=== PATIENT | female | born 1955 | race Caucasian/White ===

== ENCOUNTER 2025-05-26 02:44 | Emergency (ER) | payer MEDICARE, OTHER, SELFPAY ==
[2025-05-26 03:03] VITALS: BMI 31.1
--- NOTE | 2025-05-26 03:06 | DOWNTIME ---
There was a [employer] Downtime on 05/26/2025 from 0100 to 05/26/2025 at 0255. Downtime documentation of patient's care, including medication administrations, has been reconciled in the electronic record per guidelines. Refer to the
patient's paper chart under the miscellaneous tab to see printed paper medication records and downtime forms.
[2025-05-26 03:11] LABS: Hematocrit 38.7 % (37.0-47.0); Hemoglobin 12.7 g/dL (12.0-16.0); Mean Corp Hgb Conc. 32.8 g/dL (33.0-37.0); Mean Corpuscular Volume 89.6 fL (81.0-99.0); Platelet Count 171 10^3/uL (130-400); Red Cell Dist. Width 13.5 % (11.5-14.5)
[2025-05-26 03:12] LABS: Nucleated Red Blood Cells % 0 %
[2025-05-26 03:22] LABS: ALT (SGPT) 19 U/L (0-35); AST (SGOT) 19 U/L (14-36); Albumin 4.1 g/dl (3.5-5.0); Alkaline Phosphatase 95 U/L (38-126); Blood Urea Nitrogen 20 mg/dl (7-17); Calcium 9.4 mg/dl (8.4-10.2); Carbon Dioxide 28 mmol/L (22-30); Chloride 105 mmol/L (98-107); Estimated Creatinine Clearance 57 ml/min; Glucose 110 mg/dl (70-99); Lipase 156 U/L (23-300); Potassium 3.9 mmol/L (3.5-5.1); Sodium 137 mmol/L (135-145); Total Protein 6.7 g/dl (6.3-8.2); eGFR > 60.00
[2025-05-26 04:00] VITALS: BP 125/66
--- NOTE | 2025-05-26 04:32 | ED.GENMED ---
History of Present Illness
General
Chief Complaint: Abdominal Symptoms
Source: patient
Exam Limitations: none
Time Seen by Provider: 05/26/25 04:32
History of Present Illness
History of Present Illness:
Note:
CHIEF COMPLAINT(S)
Upper abdominal discomfort with associated back pain.
HISTORY OF PRESENT ILLNESS
The patient is a 69-year-old female with pmh of GERD who presents to the ER today with concerns of upper abdominal discomfort that radiates to the back on the right side. She describes the sensation as 'ice-like' and notes the onset occurred after
eating a meal consisting of barbecue chicken and macaroni and cheese at around 8 pm. The discomfort began under the rib cage and extended to the back. Despite a history of frequent belching, she states this current episode of pain is not like
episodes of GERD she has had in the past. She notes that the symptoms come in waves and are not associated with a burning sensation, which makes her think it is not related to gastroesophageal reflux disease. There is also a history of episodic
squeezing pressure in this region, but without prior back pain involvement. Currently, pain is present but minimal and belching seemed to subside. No episodes of vomiting. No fevers or chills. No lower back discomfort. No history of kidney stones or
peptic ulcer disease. The patient experiences chills without fever, making her suspect gallbladder involvement. She denies nausea, vomiting, dark stools, hematochezia, or respiratory symptoms like cough. The patient reports an episode of feeling
restless at home and unable to find a comfortable position in bed due to the pain, which seems to recede and surge. She experienced chills and cold hands prior to seeking care. She denies chest pain, jaw pain, pain in her extremities, syncopal
episode. She has no burning with urination, dysuria.
PAST MEDICAL AND SURGICAL HISTORY
The patient has a history of reflux, for which she used pantoprazole but has since discontinued. She reports past episodes of microscopic hematuria but has not been diagnosed with any specific condition following cystoscopy. There is no history of
abdominal surgery or gallbladder removal.
SOCIAL HISTORY
The patient is a former smoker. She ceased smoking in the past but did not specify how long ago.
REVIEW OF SYSTEMS
- Gastrointestinal: Reports upper abdominal discomfort with radiation to the back, belching.
- Musculoskeletal: Back pain radiating from the abdomen.
- Constitutional: Chills without fever were noted.
- Respiratory: No cough, dyspnea, or recent respiratory illness.
- Cardiovascular: Denies chest pain, arm, shoulder, or jaw pain. No palpitations noted.
PHYSICAL EXAM
General: Well appearing, awake and alert, no acute distress.
Skin: Warm, dry.
Head: Normocephalic, atraumatic.
Neck: Supple, trachea midline.
Eye, Ears, Nose, Mouth, and Throat: Oral mucosa moist.
Cardiovascular: Regular rate and rhythm, no murmurs. Normal peripheral perfusion, no edema.
Respiratory: Respirations are non-labored. No wheezes, rales, or rhonchi
Gastrointestinal: Abdomen nondistended. No tenderness upon palpation. No palpable abdominal masses, no pulsatile abdominal mass.
Back: Normal range of motion, normal alignment, no tenderness to palpation.
Musculoskeletal: Normal range of motion, normal strength.
Neurological: Alert and oriented to person, place, time, and situation, no focal neurological deficit observed.
Psychiatric: Cooperative, appropriate mood and affect.
PROBLEM LIST
Acute:
1. Upper abdominal discomfort with radiation to the back.
2. Associated chills without fever.
3. History of belching.
PLAN
1. Obtain an abdominal ultrasound to evaluate gallbladder function and check for kidney stones.
2. Consider administering a GI cocktail to rule out gastroesophageal reflux-related symptoms.
3. Monitor symptoms, particularly chills, since they could indicate a gallbladder infection.
4. Educate the patient on signs and symptoms that would necessitate further immediate evaluation such as increasing pain, fever, or new symptoms.
Since patient is experiencing belching and nausea and GERD ans gastritis is on the ddx, I did offer GI cocktail which patient declined
Patient declining nausea medication at this time
Reviewed case with Dr. Lowe
Considering symptoms started >6 hours ago with no chest pain, will plan to draw one trop
DIFFERENTIAL DIAGNOSIS
The Differential Diagnosis includes, in no particular order and is not limited to:
1. Cholecystitis
2. Biliary colic
3. Peptic ulcer disease
4. Gastroesophageal reflux disease
5. Pancreatitis
6. Myocardial ischemia
7. GERD with atypical presentation
8. Kidney stone
9. Musculoskeletal pain
10. Viral gastroenteritis
CHART REVIEW
No prior ER physician documentation to review
No discharge summary for review
No external medical summary for review
ECG
Normal sinus rhythm
Rate 72
No ischemia
Normal intervals
UPDATE
On reassessment, patient states that she feels much better than from initial assessment, notices some back discomfort
LABS
Lipase normal
CBC shows no leukocytosis
LFTs and total bilirubin normal
MDM/DISPOSITION
69-year-old females past history history of Gerd presents to the ER today with concerns of pain , belching, nausea after eating dinner. She feels like discomfort reads to the back. She has no sushi she had chest pain. And physical exam she's well
appearing in acute distress. Her vital centers are stable. There's no obvious abdominal tenderness to palpation, no probable abdominal mass. Negative Wills sign. eports that she has no personal or family history of cardiac disease. I did offer
medications for patient discomfort which she declines at this time. atient was sent for abdominal ultrasound which was negative for acute cholecystitis, no evidence of gallstones. Pancreas unremarkable. No signs of hydronephrosis. Abdominal aorta
appears unremarkable. Liver on unremarkable.
Troponin undetectable, ECG not ischemic. Consider considering patient waxing and waning pattern of pain , associate with right side discomfort, I highly suspect suspect biliary colic based on Salvador III/IV criteria. Discussed close follow up with GI
and pcp. Another possibly is GERD, we discussed PPI trial which patient will consider. Other consideration is MSK etiology. Case discussed with ED attending. Patient stable for discharge
Phy Exam
Physical Exam
Physical Exam:
see hpi
Course
Orders/Labs/Results
Orders:
Orders
05/26/25
Electrocardiogram (*1) Stat
Reason for Study: Chest Pain
05/26/25 02:02
Complete Blood Count/With Diff Urgent
Comprehensive Metabolic Panel Urgent
Lipase Urgent
05/26/25 05:17
US Abdomen Complete/Upper Urgent
Comment:
Reason For Exam: epigastric pain
05/26/25 05:36
Troponin I Urgent
Abnormal Lab Results
05/26/25
02:02
MCHC 32.8 L g/dL
(33.0-37.0)
BUN 20 H mg/dl
(7-17)
Glucose 110 H mg/dl
(70-99)
05/26/25 02:02
05/26/25 02:02
Vital Signs
Initial and Last Documented VS:
Initial Vital Signs
Pulse Resp Pulse Ox
77 14 97
05/26/25 03:47 05/26/25 03:47 05/26/25 03:47
Last Documented Vital Signs
Pulse Resp BP Pulse Ox
67 16 123/63 96
05/26/25 06:30 05/26/25 06:30 05/26/25 05:00 05/26/25 06:30
*Pulse Oximetry
SaO2: 97
Patient hypoxic: no
*Critical Care Note
Total Time (30-74mins, 75-104mins- exclusive of procedures): Not Applicable
ED Attending Note
-
Portions of this chart may have been created with voice recognition software.� Occasional wrong word or��sound alike� substitutions may have occurred due to the inherent limitations of voice recognition software.
Discharge Plan
Departure
Patient Disposition: Home (Routine Discharge)
Date of Disposition: 05/26/25
Time of Disposition: :
Patient with high blood pressure during this ER visit?: No
Discharge Problem:
Acute epigastric pain, Biliary colic
Instructions: Abdominal Pain
Prescriptions:
No Action
atorvastatin 10 mg Tablet
10 mg PO DAILY
Referrals:
Elmer Washburn DO [Family Provider]
Iftikhar Kumar DO [Active, Gastroenterology]
Activity Restrictions/Additional Instructions:
Please follow up with GI for further patient. The number is attached.
Interventions
Interventions:
*Risk Screen - Suicide Last Done: 05/26/25 03:07
*General Assessment Last Done: 05/26/25 03:04
*Neglect/Abuse Screening Last Done: 05/26/25 03:04
*ED- Fall Risk Assessment Last Done: 05/26/25 03:04
*ED COVID-19 Vaccine History Last Done: 05/26/25 03:04
*ED Influenza Vaccine History Last Done: 05/26/25 03:04
*Nursing Disposition Last Done: 05/26/25 07:32
CG-Szvofs-Qqxtkyfygn Assessment Last Done: 05/26/25 03:07
Discharge Date and Time
Discharge Date/Time: 05/26/25 07:33
Print Language: [employer]
[2025-05-26 05:00] VITALS: BP 123/63
[2025-05-26 06:25] LABS: Troponin I < 0.012 ng/ml
== END 2025-05-26 07:33 | disposition home or self-care (01) ==
LOC: EMR 02:44
PROVIDERS: Physician Assistant; EMERGENCY PHYSICIAN Student in an Organized Health Care Education/Training Program; FAMILY PHYSICIAN Family Medicine
DX: R10.13 Epigastric pain (principal); K80.50 Calculus of bile duct without cholangitis or cholecystitis without obstruction; K21.9 Gastro-esophageal reflux disease without esophagitis; Z87.891 Personal history of nicotine dependence
CPT/HCPCS: 99284; 76700; 80053; 83690; 84484; 85025; 93005